=== PATIENT | female | born 1985 | race Caucasian/White ===

== ENCOUNTER 2022-09-14 15:01 | Emergency (ER) | payer MEDICAID | END 2022-09-14 17:29 | disposition left against medical advice (07) | LOC: ER 15:02 | DX: R07.81 Pleurodynia (principal); Z53.21 Procedure and treatment not carried out due to patient leaving prior to being seen by health care provider ==

== ENCOUNTER 2022-09-15 00:42 | Emergency (ER) | payer MEDICAID ==
[~2022-09-15] VITALS: Ht 162.6 cm; Wt 105.0 kg
[2022-09-15] MEDS ORDERED: acetaminophen 325mg tablet PO ONE (02:40)
[2022-09-15] MEDS ORDERED: LIDOcaine 5% patch TP ONE (02:40)
[2022-09-15] MEDS ORDERED: ibuprofen tablet 400 MG TABLET PO ONE (02:40)
[2022-09-15 03:59] VITALS: BP 124/80
== END 2022-09-15 04:02 | disposition home or self-care (01) ==
LOC: ER 00:44
DX: R07.81 Pleurodynia (principal); Z88.0 Allergy status to penicillin; Z79.899 Other long term (current) drug therapy
CPT/HCPCS: 71046; 99284

== ENCOUNTER 2022-09-29 08:04 | Emergency (ER) | payer MEDICAID ==
[~2022-09-29] VITALS: Ht 165.1 cm; Wt 96.8 kg
[2022-09-29 08:07] VITALS: BP 118/65
== END 2022-09-29 15:15 | disposition home or self-care (01) ==
LOC: ER 08:05
DX: M25.461 Effusion, right knee (principal); Z88.0 Allergy status to penicillin; Z79.899 Other long term (current) drug therapy
CPT/HCPCS: 29505; 73564; 99283